=== PATIENT | female | born 1975 | race Two or more races ===

== ENCOUNTER 2017-01-04 15:37 | Emergency (ER) | payer MEDICAID ==
[~2017-01-04] VITALS: Ht 165.1 cm; Wt 95.3 kg
[2017-01-04 15:46] VITALS: BP 141/79
== END 2017-01-04 16:23 | disposition home or self-care (01) ==
LOC: ER 15:39
DX: L02.31 Cutaneous abscess of buttock (principal); I10 Essential (primary) hypertension
CPT/HCPCS: 10060; 99283; A4606; A6402; Z7610

== ENCOUNTER 2017-11-13 01:41 | Emergency (ER) | payer MEDICAID ==
[~2017-11-13] VITALS: Ht 162.6 cm; Wt 95.3 kg
--- NOTE | 2017-11-13 02:00 | NUR ---
PT BIB SELF. PT C/O UPPER ABDOMINAL PAIN. PT STATES THE PAIN RADIATES TO BACK AND DESCRIBES THE PAIN PRESSURE. PT STATES STARTED 3 HOURS AGO. MULTIPLE EPISODES OF VOMITING AND DIARRHEA. PT AOX4 AND PLACED ON MONITOR. WAITING FOR MD SHANE
--- NOTE | 2017-11-13 02:10 | NUR ---
IV PLACED ON RIGHT AC. 18 G. PLACED ON SALINE LOCK.
--- NOTE | 2017-11-13 02:20 | NUR ---
LABS DRAWN AND CALLED FOR DIETARY WORKER. PT UNABLE TO PROVIDE URINE AT THIS TIME
[2017-11-13] MEDS ORDERED: MORPHINE SULFATE INJ 4 MG/ML DISP.SYRIN ONE (02:22)
[2017-11-13] MEDS ORDERED: ONDANSETRON HCL/PF 4 MG/2 ML VIAL ONE (02:22)
[2017-11-13] MEDS ORDERED: MORPHINE SULFATE INJ 2 MG/ML DISP.SYRIN IV ONE (02:30)
[2017-11-13] MEDS ORDERED: IV NS 0.9% 1,000 ML BAG IV ONE (02:30)
[2017-11-13] MEDS ORDERED: ONDANSETRON HCL/PF 4 MG/2 ML VIAL IVP ONE (02:30)
[2017-11-13 02:45] LABS: BASOPHILS % (AUTO) 0.3 % (0.0-2.0); EOSINOPHILS % (AUTO) 0.2 % (0.0-6.0); HEMATOCRIT 46 % (33-45); HEMOGLOBIN 15.5 g/dL (11.5-14.8); LYMPHOCYTES # (AUTO) 0.9 /CMM (0.8-4.8); LYMPHOCYTES % (AUTO) 8.4 % (20.0-44.0); MEAN CORPUSCULAR HEMOGLOBIN 30 PG (26.0-33.0); MEAN CORPUSCULAR HGB CONC 34 g/dl (31.0-36.0); MEAN CORPUSCULAR VOLUME 87 fL (82-100); MONOCYTES # (AUTO) 0.6 /CMM (0.1-1.30); MONOCYTES % (AUTO) 5.6 % (2.0-12.0); NEUTROPHILS # (AUTO) 9.4 /CMM (1.8-8.9); NEUTROPHILS % (AUTO) 85.5 % (43.0-81.0); PLATELET COUNT (AUTO) 305 /CMM (150-450); RDW COEFFICIENT OF VARIATION 13.6 (11.5-15.0); RED BLOOD CELL COUNT(AUTO) 5.25 MIL/uL (4.0-5.2); WHITE BLOOD COUNT (AUTO) 10.9 K/uL (4.3-11.0)
--- NOTE | 2017-11-13 02:46 | NUR ---
ULTRASOUND AT BEDSIDE
[2017-11-13 03:00] LABS: CALCIUM, SERUM 8.9 mg/dL (8.5-10.1); CARBON DIOXIDE 28 mmol/L (21-32); CHLORIDE 96 mmol/L (98-107); CREATININE 0.7 mg/dL (0.6-1.3); GLUCOSE 325 mg/dL (74-106); SODIUM SERUM 136 mmol/L (136-145); UREA NITROGEN, BLOOD 6 mg/dL (7-18)
[2017-11-13 03:08] LABS: ALANINE AMINOTRANSFERASE 23 U/L (12-78); ALBUMIN 3.5 g/dL (3.4-5.0); ALKALINE PHOSPHATASE 136 U/L (46-116); ASPARTATE AMINOTRANSFERASE 18 U/L (15-37); BILIRUBIN,DIRECT 0.1 mg/dL (0.0-0.2); BILIRUBIN,TOTAL 0.9 mg/dL (0.2-1.0); LIPASE 129 U/L (73-393); TOTAL PROTEIN, SERUM 7.8 g/dL (6.4-8.2)
[2017-11-13 03:09] LABS: TROPONIN I < 0.017 ng/mL (0.00-0.056)
[2017-11-13 03:10] LABS: POTASSIUM 2.8 mmol/L (3.5-5.1)
--- NOTE | 2017-11-13 03:27 | NUR ---
URINE SPECIMEN COLLECTED. CALLED LAB FOR RESIDENTIAL INSURANCE INSPECTOR
[2017-11-13] MEDS ORDERED: POTASSIUM CHLORIDE 20 MEQ TAB.PRT.SR PO ONE ×3 (03:30→03:42)
--- NOTE | 2017-11-13 03:35 | NUR ---
End time for NS 1000 ml's @ 0335
[2017-11-13 03:44] LABS: APPEARANCE,URINE CLOUDY (CLEAR); BILIRUBIN,URINE NEGATIVE (NEGATIVE); BLOOD, URINE 3+ Ery/uL (NEGATIVE); COLOR,URINE RED (YELLOW); KETONES,URINE 3+ (NEGATIVE); LEUKOCYTE ESTERASE ,URINE NEGATIVE (NEGATIVE); NITRITE, URINE NEGATIVE (NEGATIVE); PROTEIN,URINE 1+ mg/dl (NEGATIVE); UGLUCOSE 3+ mg/dL (NEGATIVE); UROBILINOGEN,URINE 0.2 EU/dL (0.2)
[2017-11-13 03:55] LABS: BACTERIA,URINE None seen /HPF (None Seen); RBC,URINE 81-100 /HPF (0-2); SQUAMOUS EPITHELIAL CELL,UR Few /HPF (None Seen); WBC,URINE 0-2 /HPF (0-3)
[2017-11-13 04:12] VITALS: BP 106/72
--- NOTE | 2017-11-13 04:23 | NUR ---
IV removed. Catheter intact and site benign. Pressure and 4x4 applied to site. No bleeding noted. Patient discharged to home in stable condition. Written and verbal after care instructions given. Patient verbalizes understanding of instruction. ambulatory with a steady gait noted. pt aaox4 no acute distress noted, resp even and unlabored. advice pt not to drive or operate any machinery due to pt was given narcotic medicine. pt verbalize understanding, pt daughter and here to take pt home.
== END 2017-11-13 04:23 | disposition home or self-care (01) ==
LOC: ER 01:43
DX: K80.50 Calculus of bile duct without cholangitis or cholecystitis without obstruction (principal); K80.20 Calculus of gallbladder without cholecystitis without obstruction; E87.6 Hypokalemia; R73.9 Hyperglycemia, unspecified
CPT/HCPCS: 36415; 76705; 80048; 80076; 81001; 82962; 83690; 84484; 84703; 85025; 93005; 96361; 96374; 96375; 99285; A4606; J2270; J2405; J7030; Z7610; 81000-TC

== ENCOUNTER 2020-07-07 17:10 | Emergency (ER) | payer MEDICAID ==
[~2020-07-07] VITALS: Ht 162.6 cm; Wt 122.5 kg
[2020-07-07] MEDS ORDERED: METOCLOPRAMIDE HCL 10 MG/2 ML VIAL ONE (17:55)
[2020-07-07] MEDS ORDERED: diphenhydrAMINE HCL 50 MG/ML VIAL ONE (17:55)
[2020-07-07] MEDS ORDERED: diphenhydrAMINE HCL 50 MG/ML VIAL IV ONE (18:00)
[2020-07-07] MEDS ORDERED: METOCLOPRAMIDE HCL 10 MG/2 ML VIAL IV ONE (18:00)
--- NOTE | 2020-07-07 18:07 | NUR ---
pt comes from [facility] for 4 days accu ck 146 12/30 pain htn iv starrted left ac 22g labs drawn sent to lab
--- NOTE | 2020-07-07 18:08 | NUR ---
AWAITING EVALUATION BY ER PROVIDER. meds given per md ordere vss
[2020-07-07 18:11] LABS: BASOPHILS % (AUTO) 0.5 % (0.0-2.0); EOSINOPHILS % (AUTO) 0.2 % (0.0-6.0); HEMATOCRIT 28 % (33-45); HEMOGLOBIN 8.4 g/dL (11.5-14.8); LYMPHOCYTES # (AUTO) 1.2 /CMM (0.8-4.8); MEAN CORPUSCULAR HGB CONC 30 g/dl (31.0-36.0); MEAN CORPUSCULAR VOLUME 63 fL (82-100); MONOCYTES # (AUTO) 0.3 /CMM (0.1-1.30); MONOCYTES % (AUTO) 5.3 % (2.0-12.0); PLATELET COUNT (AUTO) 426 /CMM (150-450); RED BLOOD CELL COUNT(AUTO) 4.44 MIL/uL (4.0-5.2); WHITE BLOOD COUNT (AUTO) 5.5 K/uL (4.3-11.0)
[2020-07-07 18:22] LABS: BILIRUBIN,URINE NEGATIVE (NEGATIVE); COLOR,URINE YELLOW (YELLOW); LEUKOCYTE ESTERASE ,URINE NEGATIVE (NEGATIVE); NITRITE, URINE NEGATIVE (NEGATIVE); PROTEIN,URINE NEGATIVE (NEGATIVE); UGLUCOSE NEGATIVE (NEGATIVE); UROBILINOGEN,URINE 0.2 EU/dL (0.2)
[2020-07-07 18:25] LABS: ALBUMIN 3.3 g/dL (3.4-5.0); BILIRUBIN,TOTAL 0.6 mg/dL (0.2-1.0); CALCIUM, SERUM 7.8 mg/dL (8.5-10.1); CREATININE 0.5 mg/dL (0.6-1.3); POTASSIUM 3.6 mmol/L (3.5-5.1); TOTAL PROTEIN, SERUM 6.6 g/dL (6.4-8.2)
[2020-07-07 18:27] LABS: BACTERIA,URINE 1+ /HPF (None Seen)
--- NOTE | 2020-07-07 18:28 | NUR ---
h and h 8.4 28
--- NOTE | 2020-07-07 18:33 | NUR ---
sent to ct
[2020-07-07 18:37] LABS: BAND % (MANUAL) 1 % (0.0-5.0); EOSINOPHILS % (MANUAL) 1 % (0-4); LYMPHOCYTES % (MANUAL) 20 % (16-48); MONOCYTES % (MANUAL) 2 % (0-11.0); NEUTROPHILS % (MANUAL) 76 (42-76)
[2020-07-07] MEDS ORDERED: KETOROLAC TROMETHAMINE INJ 30 MG/ML VIAL ONE (19:41)
[2020-07-07] MEDS ORDERED: KETOROLAC TROMETHAMINE INJ 30 MG/ML VIAL IV ONE (20:00)
--- NOTE | 2020-07-07 20:00 | NUR ---
PATIENT STATES THAT HER PAIN WENT FROM 10/30 TO 2 MD NOTIFIED. AWAITING DISCHARGE PAPERS.
[2020-07-07] MEDS ORDERED: NAPR-1164 PO (20:23)
[2020-07-07 20:34] VITALS: BP 123/74
--- NOTE | 2020-07-07 20:34 | NUR ---
Patient discharged to home in stable condition. Written and verbal after care instructions given. Patient verbalizes understanding of instruction.
--- NOTE | 2020-07-07 20:34 | NUR ---
IV removed. Catheter intact and site benign. Pressure and 4x4 applied to site. No bleeding noted.
--- NOTE | 2020-07-07 20:34 | NUR ---
PATIENT IS TAKEN HOME BY .
[2020-07-08] MEDS ORDERED: METF-442 PO (23:53)
[2020-07-08] MEDS ORDERED: GLIP5TAB13 PO (23:53)
[2020-07-09] MEDS ORDERED: SUMA25TA PO (11:45)
== END 2020-07-07 20:34 | disposition home or self-care (01) ==
LOC: ER 17:17
DX: R51.9 Headache, unspecified (principal); R11.2 Nausea with vomiting, unspecified; D64.9 Anemia, unspecified; I10 Essential (primary) hypertension; E11.9 Type 2 diabetes mellitus without complications; Z79.899 Other long term (current) drug therapy
CPT/HCPCS: 36415; 70450; 80053; 81001; 82962; 84703; 85007; 85025; 96374; 96375; 99284; J1200; J1885; J2765

== ENCOUNTER 2020-07-08 19:53 | Inpatient (IN) | payer MEDICAID ==
[~2020-07-08] VITALS: Ht 162.6 cm; Wt 121.6 kg
[~2020-07-08 19:53] MED LIST: NAPR-1164 PO
--- NOTE | 2020-07-08 21:00 | NUR ---
BIBS FOR C/O ONGOING H/A X 5 DAYS. WAS [facility]EN [facility]. REC'D NAPROXEN AT 1500, +NAUSEA, PT AAOX4, -SOB, NAD NOTED. VSS. PENDING MD SHANE
[2020-07-08] MEDS ORDERED: METOCLOPRAMIDE HCL 10 MG TABLET PO ONE (21:30)
[2020-07-08] MEDS ORDERED: diphenhydrAMINE HCL 50 MG/ML VIAL IV ONE (21:30)
[2020-07-08] MEDS ORDERED: diphenhydrAMINE HCL 50 MG/ML VIAL ONE (21:31)
[2020-07-08] MEDS ORDERED: METOCLOPRAMIDE HCL 10 MG/2 ML VIAL ONE (21:31)
[2020-07-08] MEDS ORDERED: METOCLOPRAMIDE HCL 10 MG/2 ML VIAL IV ONE (22:00)
[2020-07-08] MEDS ORDERED: IOHEXOL-350 100 ML VIAL IV ONE (22:13)
[2020-07-08 22:25] LABS: BASOPHILS # (AUTO) 0.1 /CMM (0.0-0.2); BASOPHILS % (AUTO) 0.8 % (0.0-2.0); EOSINOPHILS % (AUTO) 0.4 % (0.0-6.0); HEMATOCRIT 30 % (33-45); HEMOGLOBIN 9.1 g/dL (11.5-14.8); LYMPHOCYTES # (AUTO) 1.3 /CMM (0.8-4.8); MEAN CORPUSCULAR HGB CONC 30 g/dl (31.0-36.0); MEAN CORPUSCULAR VOLUME 64 fL (82-100); MONOCYTES # (AUTO) 0.5 /CMM (0.1-1.30); MONOCYTES % (AUTO) 6.5 % (2.0-12.0); NEUTROPHILS # (AUTO) 5.5 /CMM (1.8-8.9); NEUTROPHILS % (AUTO) 74.3 % (43.0-81.0); PLATELET COUNT (AUTO) 464 /CMM (150-450); RED BLOOD CELL COUNT(AUTO) 4.79 MIL/uL (4.0-5.2); WHITE BLOOD COUNT (AUTO) 7.4 K/uL (4.3-11.0)
[2020-07-08 22:31] LABS: CALCIUM, SERUM 8.2 mg/dL (8.5-10.1); CREATININE 0.6 mg/dL (0.6-1.3); POTASSIUM 3.5 mmol/L (3.5-5.1)
[2020-07-08 23:09] LABS: LYMPHOCYTES % (MANUAL) 17 % (16-48); MONOCYTES % (MANUAL) 8 % (0-11.0); NEUTROPHILS % (MANUAL) 75 (42-76)
[2020-07-08] MEDS ORDERED: MAG HYDROX/AL HYDROX/SIMETH 30 ML UDC PO PRN (23:30)
[2020-07-08] MEDS ORDERED: ONDANSETRON HCL/PF 4 MG/2 ML VIAL IVP PRN (23:30)
[2020-07-08] MEDS ORDERED: IV NS 0.9% 1,000 ML IV PRN (23:30)
[2020-07-08] MEDS ORDERED: ACETAMINOPHEN 325 MG TABLET PO PRN (23:30)
[2020-07-08] MEDS ORDERED: MORPHINE SULFATE INJ 2 MG/ML DISP.SYRIN IV PRN (23:30)
[2020-07-08] MEDS ORDERED: MAGNESIUM HYDROXIDE 30 ML UDC PO PRN (23:30)
[2020-07-08] MEDS ORDERED: SUMATRIPTAN SUCCINATE 25 MG TABLET PO PRN (23:30)
[2020-07-08] MEDS ORDERED: HYDROCODONE/APAP 5/325MG TABLET PO PRN (23:30)
--- NOTE | 2020-07-08 23:42 | NUR ---
REPORT GIVEN TO ADEN MCKEON FOR ELAN
[2020-07-08] MEDS ORDERED: METF-442 PO (23:53)
[2020-07-08] MEDS ORDERED: GLIP5TAB13 PO (23:53)
[2020-07-09] VITALS: BP 143/77
--- NOTE | 2020-07-09 | NUR ---
MS RN ADMITTING NOTE PATIENT ADMITTED TO [facility] 323-2. PATIENT A/O X 4, AMBULATORY. PATIENT'S SKIN INTACT, NO REDNESS/WOUNDS. BRUISE PRESENT ON THE LEFT UPPER ARM. BELONGINGS/VALUABLES CHECKED. VITAL SIGNS STABLE UPON ADMISSION. ORIENTED PATIENT TO UNIT, ROOM, PRIMARY NURSE, CHARGE NURSE, AND CONSOLE MANAGER. NO C/O HEADACHE, N/V AT THIS TIME. BREATHING EVEN AND UNLABORED. TOLERATING ROOM AIR. SAFETY PRECAUTIONS IN PLACE. BED IN LOCKED AND LOWEST POSITION, CALL LIGHT WITHIN REACH. ENCOURAGED PATIENT TO USE CALL LIGHT WHEN IN NEED. WILL MONITOR PATIENT CLOSELY.
--- NOTE | 2020-07-09 00:03 | NUR ---
PT TRANSPORTED TO 3RD FLOOR
[2020-07-09] MEDS ORDERED: ASPI-1169 PO (02:55)
[2020-07-09] MEDS ORDERED: ATOR20TA PO (02:55)
[2020-07-09] MEDS ORDERED: GABA-532 PO (02:55)
[2020-07-09] MEDS ORDERED: BENA20TA9 PO (02:55)
--- NOTE | 2020-07-09 07:00 | NUR ---
MS RN CLOSING NOTE PATIENT AWAKE, SITTING AT THE EDGE OF THE BED, A/O X 4. PATIENT DOES NOT COMPLAIN OF HEADACHE, N/V. BREATHING EVEN AND UNLABORED. TOLERATING ROOM AIR. IV FLUIDS INFUSING WELL. SAFETY PRECAUTIONS MAINTAINED. ALL NEEDS MET AND ATTENDED. WILL ENDORSE TO DAY SHIFT NURSE FOR ELAN.
[2020-07-09 07:05] LABS: BASOPHILS % (AUTO) 0.6 % (0.0-2.0); EOSINOPHILS % (AUTO) 0.9 % (0.0-6.0); HEMATOCRIT 27 % (33-45); HEMOGLOBIN 8.3 g/dL (11.5-14.8); LYMPHOCYTES # (AUTO) 2.2 /CMM (0.8-4.8); LYMPHOCYTES % (AUTO) 34.3 % (20.0-44.0); MEAN CORPUSCULAR HGB CONC 30 g/dl (31.0-36.0); MEAN CORPUSCULAR VOLUME 63 fL (82-100); MONOCYTES # (AUTO) 0.5 /CMM (0.1-1.30); MONOCYTES % (AUTO) 7.1 % (2.0-12.0); NEUTROPHILS # (AUTO) 3.6 /CMM (1.8-8.9); NEUTROPHILS % (AUTO) 57.1 % (43.0-81.0); PLATELET COUNT (AUTO) 418 /CMM (150-450); RED BLOOD CELL COUNT(AUTO) 4.33 MIL/uL (4.0-5.2); WHITE BLOOD COUNT (AUTO) 6.3 K/uL (4.3-11.0)
[2020-07-09 07:58] LABS: ALBUMIN 3.5 g/dL (3.4-5.0); BILIRUBIN,TOTAL 0.6 mg/dL (0.2-1.0); CALCIUM, SERUM 8.3 mg/dL (8.5-10.1); CREATININE 0.6 mg/dL (0.6-1.3); MAGNESIUM 1.9 mg/dL (1.8-2.4); POTASSIUM 3.2 mmol/L (3.5-5.1); TOTAL PROTEIN, SERUM 6.6 g/dL (6.4-8.2)
[2020-07-09 08:00] VITALS: BP 146/83
[2020-07-09 08:06] VITALS: BP 146/83
[2020-07-09 08:08] LABS: THYROID STIMULATING HORMONE 2.108 uIU/mL (0.358-3.74)
[2020-07-09] MEDS: POTASSIUM CL. PREMIX PERIPHER. 50 ML IV SCH ×3 (09:03→11:37)
--- NOTE | 2020-07-09 09:30 | NUR ---
m/s clinical aide: md visit seen and examined by vandana baptiste (jonathan) and updated plan of care. awaiting for neurologist to see her and once clear, pt may d'c home today. pt verbalized understanding.
--- NOTE | 2020-07-09 11:40 | NUR ---
m/s sales project coordinator: notes clean catch urine collected, called lab spoke to dale (labor and delivery registered nurse) to supervisor picking crew the specimen in the specimen refrigerator.
[2020-07-09] MEDS ORDERED: SUMA25TA PO (11:45)
[2020-07-09] MEDS ORDERED: ASPIRIN 81 MG TAB.CHEW PO SCH (11:47)
[2020-07-09] MEDS ORDERED: BENAZEPRIL HCL 20 MG TABLET PO SCH (11:47)
[2020-07-09] MEDS ORDERED: METFORMIN 500 MG TABLET PO SCH (11:48)
--- NOTE | 2020-07-09 12:00 | NUR ---
m/s track man: notes received discharge order from vandana baptiste to discharge pt home if cleared by neurologist. daughter here visiting and aware. awaiting for neurologist recommendation and clearance.
[2020-07-09] MEDS ORDERED: GABAPENTIN 100 MG CAPSULE PO SCH (13:00)
--- NOTE | 2020-07-09 14:30 | NUR ---
m/s tack picker: notes visiting. still awaiting for neurologist to see pt. no distress noted. instructed to call for assistance.
--- NOTE | 2020-07-09 15:30 | NUR ---
m/s uniform room attendant: notes f/u made to lab re: specimen collected this morning and informed tech that it hasn't been picked up.
[2020-07-09 16:00] VITALS: BP 139/73
--- NOTE | 2020-07-09 16:43 | NUR ---
m/s district fire management officer: notes scout (raheem) called and will fax [facility] to give to pt once neurologist cleared her for discharge for follow up. pt aware.
--- NOTE | 2020-07-09 16:55 | NUR ---
m/s fine hairer: neuro consult dr. allen at bedside examining pt. pt cleared to go home per dr. allen and also he informed vandana baptiste (swimming pool service technician). pt needs to her general doctor and to f/u with [facility]. all resources given to pt.
[2020-07-09] MEDS ORDERED: glipiZIDE 5 MG TABLET PO SCH (17:00)
--- NOTE | 2020-07-09 17:20 | NUR ---
m/s roof shingler: notes discharge instructions with e script prescription sent to pt's pharmacy of choice. pt verbalized understanding. h/l removed with tip intact. all belongings returned and d'c papers copy provided to pt.
--- NOTE | 2020-07-09 17:30 | NUR ---
m/s occupational hygienist: discharged discharged home in stable condition accompanied by via private car.
[2020-07-09] MEDS ORDERED: ATORVASTATIN 10 MG TABLET PO SCH (18:00)
== END 2020-07-09 17:43 | disposition home or self-care (01) | DRG 54 ==
LOC: ER 19:56 → MED 23:27
PROVIDERS: ADMIT Nurse Practitioner Acute Care; ATTEND Registered Nurse
DX: G43.909 Migraine, unspecified, not intractable, without status migrainosus (principal); Z68.42 Body mass index [BMI] 45.0-49.9, adult; D50.9 Iron deficiency anemia, unspecified; E11.9 Type 2 diabetes mellitus without complications; I10 Essential (primary) hypertension; R11.2 Nausea with vomiting, unspecified; Z79.84 Long term (current) use of oral hypoglycemic drugs; E66.9 Obesity, unspecified; Z20.822 Contact with and (suspected) exposure to COVID-19
CPT/HCPCS: 36415; 70496-TC; 80048-TC; 80053-TC; 80061-TC; 83540-TC; 83735-TC; 84100-TC; 84443-TC; 84703-TC; 85025-TC; 87081-TC; C9803; G0378; J1200; J2765; J3480; J7030; Q9967